=== PATIENT | female | born 1985 | race Caucasian/White ===

== ENCOUNTER 2017-09-09 02:12 | Inpatient (IN) | payer MEDICAID ==
[~2017-09-09] VITALS: Ht 157.5 cm; Wt 70.3 kg
[2017-09-09] MEDS ORDERED: QUEtiapine FUMARATE 100 MG TABLET PO PRN (04:30)
[2017-09-09] MEDS ORDERED: ZOLPIDEM TARTRATE 10 MG TABLET PO PRN (04:30)
[2017-09-09 06:18] VITALS: BP 120/76
[2017-09-09 08:47] VITALS: BP 122/83
[2017-09-09] MEDS: RisperiDONE 3 MG TABLET PO SCH (16:21)
[2017-09-09] MEDS: HYDROCORTISONE 1% 30 GM OINTMENT TP SCH (18:00)
[2017-09-10 03:06] VITALS: BP 121/63
[2017-09-10 08:50] VITALS: BP 120/70
[2017-09-10] MEDS ORDERED: HYDROCORTISONE 1% 30 GM OINTMENT TP SCH (09:00)
[2017-09-10] MEDS: RisperiDONE 3 MG TABLET PO SCH ×2 (09:43→17:09)
[2017-09-10] MEDS: HYDROCORTISONE 1% 30 GM OINTMENT TP SCH ×2 (09:47→17:09)
[2017-09-11] MEDS: RisperiDONE 3 MG TABLET PO SCH ×2 (08:49→16:26)
[2017-09-11] MEDS: HYDROCORTISONE 1% 30 GM OINTMENT TP SCH ×2 (08:54→16:26)
[2017-09-11] MEDS ORDERED: LORazepam 2 MG/ML VIAL ONE (13:24)
[2017-09-11] MEDS ORDERED: DiphenhydrAMINE HCL 50 MG/ML VIAL ONE (13:25)
[2017-09-11] MEDS ORDERED: HALOPERIDOL LACTATE 5 MG/ML VIAL ONE (13:25)
[2017-09-11] MEDS ORDERED: DiphenhydrAMINE HCL 50 MG/ML VIAL IM ONE (13:30)
[2017-09-11] MEDS ORDERED: LORazepam 2 MG/ML VIAL IM ONE (13:30)
[2017-09-11] MEDS ORDERED: HALOPERIDOL LACTATE 5 MG/ML VIAL IM ONE (13:30)
[2017-09-11] MEDS ORDERED: HALOPERIDOL 5 MG TABLET PO PRN (14:15)
[2017-09-11] MEDS: DIVALPROEX SODIUM 500 MG DR TABLET PO SCH (17:00)
[2017-09-12] MEDS: RisperiDONE 3 MG TABLET PO SCH ×2 (09:00→16:46)
[2017-09-12] MEDS: DIVALPROEX SODIUM 500 MG DR TABLET PO SCH ×2 (09:00→17:00)
[2017-09-12] MEDS: HYDROCORTISONE 1% 30 GM OINTMENT TP SCH ×2 (09:00→16:45)
[2017-09-13] MEDS: RisperiDONE 3 MG TABLET PO SCH ×2 (08:05→16:33)
[2017-09-13] MEDS: DIVALPROEX SODIUM 500 MG DR TABLET PO SCH ×3 (08:05→16:34)
[2017-09-13] MEDS: HYDROCORTISONE 1% 30 GM OINTMENT TP SCH ×2 (08:11→16:34)
[2017-09-13] MEDS: LORazepam 2 MG TABLET PO PRN (16:33)
[2017-09-13] MEDS: LITHIUM CARBONATE 300 MG CAPSULE PO SCH (17:00)
[2017-09-14] MEDS: LITHIUM CARBONATE 300 MG CAPSULE PO SCH ×3 (09:00→16:29)
[2017-09-14] MEDS: HYDROCORTISONE 1% 30 GM OINTMENT TP SCH ×2 (09:57→16:28)
[2017-09-14] MEDS: RisperiDONE 3 MG TABLET PO SCH ×2 (09:57→16:29)
[2017-09-15] MEDS: LORazepam 2 MG TABLET PO PRN (05:53)
[2017-09-15] MEDS: RisperiDONE 3 MG TABLET PO SCH ×2 (08:08→16:16)
[2017-09-15] MEDS: LITHIUM CARBONATE 300 MG CAPSULE PO SCH ×2 (08:17→17:00)
[2017-09-15] MEDS: HYDROCORTISONE 1% 30 GM OINTMENT TP SCH ×2 (08:18→16:19)
[2017-09-16] MEDS: LITHIUM CARBONATE 300 MG CAPSULE PO SCH ×2 (07:55→16:04)
[2017-09-16] MEDS: RisperiDONE 3 MG TABLET PO SCH ×2 (07:55→16:04)
[2017-09-16] MEDS: HYDROCORTISONE 1% 30 GM OINTMENT TP SCH ×2 (07:56→16:04)
[2017-09-16] MEDS: LORazepam 2 MG TABLET PO PRN (10:44)
[2017-09-17] MEDS: HYDROCORTISONE 1% 30 GM OINTMENT TP SCH ×2 (08:51→16:25)
[2017-09-17] MEDS: RisperiDONE 3 MG TABLET PO SCH ×2 (08:51→16:20)
[2017-09-17] MEDS: LITHIUM CARBONATE 300 MG CAPSULE PO SCH ×2 (08:52→16:24)
[2017-09-17] MEDS: LORazepam 2 MG TABLET PO PRN ×2 (08:56→16:20)
[2017-09-18] MEDS: LORazepam 2 MG TABLET PO PRN ×2 (08:29→12:29)
[2017-09-18] MEDS: HYDROCORTISONE 1% 30 GM OINTMENT TP SCH ×2 (08:29→17:20)
[2017-09-18] MEDS: RisperiDONE 3 MG TABLET PO SCH ×2 (08:29→17:20)
[2017-09-18] MEDS: LITHIUM CARBONATE 300 MG CAPSULE PO SCH ×2 (08:29→17:00)
[2017-09-19] MEDS: HYDROCORTISONE 1% 30 GM OINTMENT TP SCH ×2 (08:05→16:27)
[2017-09-19] MEDS: LORazepam 2 MG TABLET PO PRN ×2 (08:05→16:26)
[2017-09-19] MEDS: RisperiDONE 3 MG TABLET PO SCH ×2 (08:05→16:26)
[2017-09-19] MEDS: LITHIUM CARBONATE 300 MG CAPSULE PO SCH (08:06)
[2017-09-19] MEDS: DIVALPROEX SODIUM 500 MG DR TABLET PO SCH ×2 (09:30→16:27)
[2017-09-20] MEDS: DIVALPROEX SODIUM 500 MG DR TABLET PO SCH ×2 (08:39→16:08)
[2017-09-20] MEDS: RisperiDONE 3 MG TABLET PO SCH ×2 (08:39→16:02)
[2017-09-20] MEDS: HYDROCORTISONE 1% 30 GM OINTMENT TP SCH ×2 (09:52→16:03)
[2017-09-20] MEDS: LORazepam 2 MG TABLET PO PRN (16:02)
[2017-09-21] MEDS: RisperiDONE 3 MG TABLET PO SCH ×2 (08:09→16:07)
[2017-09-21] MEDS: HYDROCORTISONE 1% 30 GM OINTMENT TP SCH ×2 (08:09→16:07)
[2017-09-21] MEDS: DIVALPROEX SODIUM 500 MG DR TABLET PO SCH ×2 (08:10→16:08)
[2017-09-21] MEDS: LORazepam 2 MG TABLET PO PRN ×2 (08:10→16:07)
[2017-09-22] MEDS: HYDROCORTISONE 1% 30 GM OINTMENT TP SCH ×2 (08:35→16:03)
[2017-09-22] MEDS: LORazepam 2 MG TABLET PO PRN ×2 (08:35→16:02)
[2017-09-22] MEDS: RisperiDONE 3 MG TABLET PO SCH ×2 (08:35→16:02)
[2017-09-22] MEDS: DIVALPROEX SODIUM 500 MG DR TABLET PO SCH (08:35)
[2017-09-22] MEDS: LITHIUM CARBONATE 300 MG CAPSULE PO SCH (16:02)
[2017-09-23] MEDS: RisperiDONE 3 MG TABLET PO SCH ×2 (08:31→16:14)
[2017-09-23] MEDS: LITHIUM CARBONATE 300 MG CAPSULE PO SCH ×2 (08:31→16:14)
[2017-09-23] MEDS: LORazepam 2 MG TABLET PO PRN ×2 (08:31→16:14)
[2017-09-23] MEDS: HYDROCORTISONE 1% 30 GM OINTMENT TP SCH ×2 (08:41→17:12)
[2017-09-24] MEDS: LITHIUM CARBONATE 600 MG CAPSULE PO SCH ×2 (09:08→16:08)
[2017-09-24] MEDS: RisperiDONE 3 MG TABLET PO SCH ×2 (09:08→16:08)
[2017-09-24] MEDS: HYDROCORTISONE 1% 30 GM OINTMENT TP SCH ×2 (09:55→16:08)
[2017-09-25] MEDS: HYDROCORTISONE 1% 30 GM OINTMENT TP SCH ×2 (09:00→16:16)
[2017-09-25] MEDS: LITHIUM CARBONATE 600 MG CAPSULE PO SCH ×2 (09:22→16:15)
[2017-09-25] MEDS: RisperiDONE 3 MG TABLET PO SCH ×2 (09:22→16:15)
[2017-09-25] MEDS: LORazepam 2 MG TABLET PO PRN (10:09)
[2017-09-25] MEDS ORDERED: DiphenhydrAMINE HCL 50 MG/ML VIAL ONE (10:10)
[2017-09-25] MEDS ORDERED: LORazepam 2 MG/ML VIAL ONE (10:10)
[2017-09-25] MEDS ORDERED: HALOPERIDOL LACTATE 5 MG/ML VIAL ONE (10:10)
[2017-09-25] MEDS ORDERED: DiphenhydrAMINE HCL 50 MG/ML VIAL IM ONE (10:15)
[2017-09-25] MEDS ORDERED: HALOPERIDOL LACTATE 5 MG/ML VIAL IM ONE (10:15)
[2017-09-25] MEDS ORDERED: LORazepam 2 MG/ML VIAL IM ONE (10:15)
[2017-09-25] MEDS: CARBAMIDE PEROXIDE 6.5% 15 ML OTIC SOLUTION AD SCH ×2 (10:30→16:15)
[2017-09-26] MEDS: HYDROCORTISONE 1% 30 GM OINTMENT TP SCH ×2 (08:35→17:06)
[2017-09-26] MEDS: CARBAMIDE PEROXIDE 6.5% 15 ML OTIC SOLUTION AD SCH ×2 (08:35→17:06)
[2017-09-26] MEDS: RisperiDONE 3 MG TABLET PO SCH ×2 (08:35→17:06)
[2017-09-26] MEDS: LITHIUM CARBONATE 600 MG CAPSULE PO SCH (08:35)
[2017-09-26] MEDS: LORazepam 2 MG TABLET PO PRN ×2 (09:47→17:06)
[2017-09-26] MEDS ORDERED: LITHIUM CARBONATE 300 MG TABLET PO SCH (17:00)
[2017-09-27] MEDS: HYDROCORTISONE 1% 30 GM OINTMENT TP SCH ×2 (09:01→17:11)
[2017-09-27] MEDS: LITHIUM CARBONATE 450 MG ER TABLET PO SCH ×3 (09:01→17:11)
[2017-09-27] MEDS: RisperiDONE 3 MG TABLET PO SCH ×2 (09:01→17:12)
[2017-09-27] MEDS: LORazepam 2 MG TABLET PO PRN ×3 (09:02→17:12)
[2017-09-27] MEDS: CARBAMIDE PEROXIDE 6.5% 15 ML OTIC SOLUTION AD SCH ×2 (09:03→17:12)
[2017-09-28] MEDS: RisperiDONE 3 MG TABLET PO SCH ×2 (08:36→16:03)
[2017-09-28] MEDS: HYDROCORTISONE 1% 30 GM OINTMENT TP SCH ×2 (08:36→16:03)
[2017-09-28] MEDS: LITHIUM CARBONATE 450 MG ER TABLET PO SCH ×3 (08:36→16:04)
[2017-09-28] MEDS: CARBAMIDE PEROXIDE 6.5% 15 ML OTIC SOLUTION AD SCH ×2 (08:36→16:03)
[2017-09-28] MEDS: LORazepam 2 MG TABLET PO PRN ×2 (11:08→16:03)
[2017-09-29] MEDS: CARBAMIDE PEROXIDE 6.5% 15 ML OTIC SOLUTION AD SCH ×2 (08:20→16:07)
[2017-09-29] MEDS: HYDROCORTISONE 1% 30 GM OINTMENT TP SCH ×2 (08:20→16:07)
[2017-09-29] MEDS: RisperiDONE 3 MG TABLET PO SCH ×2 (08:20→16:07)
[2017-09-29] MEDS: LITHIUM CARBONATE 450 MG ER TABLET PO SCH ×3 (08:20→16:06)
[2017-09-30] MEDS: HYDROCORTISONE 1% 30 GM OINTMENT TP SCH ×2 (08:45→16:02)
[2017-09-30] MEDS: LITHIUM CARBONATE 450 MG ER TABLET PO SCH ×2 (08:45→16:01)
[2017-09-30] MEDS: RisperiDONE 3 MG TABLET PO SCH ×2 (08:45→16:02)
[2017-09-30] MEDS: CARBAMIDE PEROXIDE 6.5% 15 ML OTIC SOLUTION AD SCH ×2 (08:45→16:02)
[2017-10-01] MEDS: LITHIUM CARBONATE 450 MG ER TABLET PO SCH ×3 (08:27→16:50)
[2017-10-01] MEDS: CARBAMIDE PEROXIDE 6.5% 15 ML OTIC SOLUTION AD SCH ×2 (08:27→16:50)
[2017-10-01] MEDS: HYDROCORTISONE 1% 30 GM OINTMENT TP SCH ×2 (08:28→16:49)
[2017-10-01] MEDS: RisperiDONE 3 MG TABLET PO SCH ×2 (08:28→16:50)
[2017-10-02 08:26] VITALS: BP 103/69
[2017-10-02] MEDS: RisperiDONE 3 MG TABLET PO SCH ×2 (08:44→16:07)
[2017-10-02] MEDS: LITHIUM CARBONATE 450 MG ER TABLET PO SCH ×3 (08:44→16:07)
[2017-10-02] MEDS: CARBAMIDE PEROXIDE 6.5% 15 ML OTIC SOLUTION AD SCH ×2 (08:44→16:07)
[2017-10-02] MEDS: HYDROCORTISONE 1% 30 GM OINTMENT TP SCH ×2 (08:44→16:07)
[2017-10-03] MEDS: CARBAMIDE PEROXIDE 6.5% 15 ML OTIC SOLUTION AD SCH ×2 (08:15→16:37)
[2017-10-03] MEDS: LITHIUM CARBONATE 450 MG ER TABLET PO SCH ×3 (08:15→16:37)
[2017-10-03] MEDS: HYDROCORTISONE 1% 30 GM OINTMENT TP SCH ×2 (08:16→16:36)
[2017-10-03] MEDS: RisperiDONE 3 MG TABLET PO SCH ×2 (08:16→16:36)
[2017-10-04] MEDS: RisperiDONE 3 MG TABLET PO SCH ×2 (08:56→16:54)
[2017-10-04] MEDS: CARBAMIDE PEROXIDE 6.5% 15 ML OTIC SOLUTION AD SCH ×2 (08:56→16:53)
[2017-10-04] MEDS: HYDROCORTISONE 1% 30 GM OINTMENT TP SCH ×2 (08:56→16:53)
[2017-10-04] MEDS: LITHIUM CARBONATE 450 MG ER TABLET PO SCH ×3 (08:56→16:53)
[2017-10-05] MEDS: RisperiDONE 3 MG TABLET PO SCH ×2 (09:15→17:28)
[2017-10-05] MEDS: CARBAMIDE PEROXIDE 6.5% 15 ML OTIC SOLUTION AD SCH ×2 (09:15→17:30)
[2017-10-05] MEDS: LITHIUM CARBONATE 450 MG ER TABLET PO SCH ×3 (09:15→17:29)
[2017-10-05] MEDS: HYDROCORTISONE 1% 30 GM OINTMENT TP SCH ×2 (09:15→17:31)
[2017-10-06] MEDS: LITHIUM CARBONATE 450 MG ER TABLET PO SCH ×2 (08:57→12:32)
[2017-10-06] MEDS: RisperiDONE 3 MG TABLET PO SCH (08:57)
[2017-10-06] MEDS: HYDROCORTISONE 1% 30 GM OINTMENT TP SCH ×2 (08:58→16:14)
[2017-10-06] MEDS: CARBAMIDE PEROXIDE 6.5% 15 ML OTIC SOLUTION AD SCH ×2 (08:58→16:14)
[2017-10-06] MEDS: PALIPERIDONE 3 MG ER TABLET PO SCH (16:14)
[2017-10-07] MEDS: PALIPERIDONE 3 MG ER TABLET PO SCH ×2 (09:00→13:10)
[2017-10-07] MEDS: CARBAMIDE PEROXIDE 6.5% 15 ML OTIC SOLUTION AD SCH ×2 (09:00→17:21)
[2017-10-07] MEDS: HYDROCORTISONE 1% 30 GM OINTMENT TP SCH ×2 (09:00→17:21)
[2017-10-07] MEDS: PALIPERIDONE 6 MG ER TABLET PO SCH (17:21)
[2017-10-08] MEDS: CARBAMIDE PEROXIDE 6.5% 15 ML OTIC SOLUTION AD SCH ×2 (08:12→16:29)
[2017-10-08] MEDS: PALIPERIDONE 6 MG ER TABLET PO SCH ×2 (08:12→16:29)
[2017-10-08] MEDS: HYDROCORTISONE 1% 30 GM OINTMENT TP SCH ×2 (08:13→16:29)
[2017-10-09] MEDS: CARBAMIDE PEROXIDE 6.5% 15 ML OTIC SOLUTION AD SCH ×2 (08:21→17:12)
[2017-10-09] MEDS: HYDROCORTISONE 1% 30 GM OINTMENT TP SCH ×2 (08:21→17:13)
[2017-10-09] MEDS: PALIPERIDONE 6 MG ER TABLET PO SCH ×2 (08:21→17:11)
[2017-10-10] MEDS: HYDROCORTISONE 1% 30 GM OINTMENT TP SCH ×2 (09:22→17:04)
[2017-10-10] MEDS: PALIPERIDONE 6 MG ER TABLET PO SCH ×2 (09:22→17:04)
[2017-10-10] MEDS: CARBAMIDE PEROXIDE 6.5% 15 ML OTIC SOLUTION AD SCH ×2 (09:22→17:03)
[2017-10-10] MEDS: RisperiDONE 1 MG TABLET PO SCH (17:04)
[2017-10-11] MEDS: PALIPERIDONE 6 MG ER TABLET PO SCH ×2 (09:02→17:17)
[2017-10-11] MEDS: CARBAMIDE PEROXIDE 6.5% 15 ML OTIC SOLUTION AD SCH ×2 (09:02→17:22)
[2017-10-11] MEDS: HYDROCORTISONE 1% 30 GM OINTMENT TP SCH ×2 (09:02→17:19)
[2017-10-11] MEDS: RisperiDONE 1 MG TABLET PO SCH ×2 (09:02→17:18)
[2017-10-12] MEDS: RisperiDONE 1 MG TABLET PO SCH (08:21)
[2017-10-12] MEDS: PALIPERIDONE 6 MG ER TABLET PO SCH ×2 (08:21→16:45)
[2017-10-12] MEDS: CARBAMIDE PEROXIDE 6.5% 15 ML OTIC SOLUTION AD SCH ×2 (08:22→16:46)
[2017-10-12] MEDS: HYDROCORTISONE 1% 30 GM OINTMENT TP SCH ×2 (08:22→16:47)
[2017-10-12] MEDS: RisperiDONE 3 MG TABLET PO SCH (16:45)
[2017-10-13] MEDS: CARBAMIDE PEROXIDE 6.5% 15 ML OTIC SOLUTION AD SCH ×2 (09:25→16:16)
[2017-10-13] MEDS: RisperiDONE 3 MG TABLET PO SCH ×2 (09:27→16:15)
[2017-10-13] MEDS: HYDROCORTISONE 1% 30 GM OINTMENT TP SCH ×2 (09:28→16:16)
[2017-10-13] MEDS: PALIPERIDONE 6 MG ER TABLET PO SCH ×2 (10:20→16:15)
[2017-10-14] MEDS: RisperiDONE 3 MG TABLET PO SCH ×2 (08:12→16:11)
[2017-10-14] MEDS: CARBAMIDE PEROXIDE 6.5% 15 ML OTIC SOLUTION AD SCH ×2 (08:12→16:13)
[2017-10-14] MEDS: PALIPERIDONE 6 MG ER TABLET PO SCH ×2 (08:12→16:11)
[2017-10-14] MEDS: HYDROCORTISONE 1% 30 GM OINTMENT TP SCH ×2 (08:13→16:12)
[2017-10-15] MEDS: HYDROCORTISONE 1% 30 GM OINTMENT TP SCH ×2 (08:06→16:01)
[2017-10-15] MEDS: RisperiDONE 3 MG TABLET PO SCH ×2 (08:08→16:00)
[2017-10-15] MEDS: PALIPERIDONE 6 MG ER TABLET PO SCH ×2 (08:08→16:00)
[2017-10-15] MEDS: CARBAMIDE PEROXIDE 6.5% 15 ML OTIC SOLUTION AD SCH ×2 (08:08→16:01)
[2017-10-16] MEDS: RisperiDONE 3 MG TABLET PO SCH ×2 (08:20→16:08)
[2017-10-16] MEDS: HYDROCORTISONE 1% 30 GM OINTMENT TP SCH ×2 (08:20→16:09)
[2017-10-16] MEDS: CARBAMIDE PEROXIDE 6.5% 15 ML OTIC SOLUTION AD SCH ×2 (08:20→16:09)
[2017-10-16] MEDS: PALIPERIDONE 6 MG ER TABLET PO SCH ×2 (08:21→16:08)
[2017-10-16] MEDS ORDERED: PALI6 PO (12:39)
[2017-10-16] MEDS ORDERED: RISP3 PO (12:40)
[2017-10-17] MEDS: CARBAMIDE PEROXIDE 6.5% 15 ML OTIC SOLUTION AD SCH ×2 (09:00→16:03)
[2017-10-17] MEDS: HYDROCORTISONE 1% 30 GM OINTMENT TP SCH ×2 (09:00→16:02)
[2017-10-17] MEDS: RisperiDONE 3 MG TABLET PO SCH ×2 (09:00→16:03)
[2017-10-17] MEDS: PALIPERIDONE 6 MG ER TABLET PO SCH ×2 (09:00→16:03)
[2017-10-18] MEDS: RisperiDONE 3 MG TABLET PO SCH ×2 (08:51→16:16)
[2017-10-18] MEDS: PALIPERIDONE 6 MG ER TABLET PO SCH ×2 (08:51→16:16)
[2017-10-18] MEDS: HYDROCORTISONE 1% 30 GM OINTMENT TP SCH ×2 (08:59→16:16)
[2017-10-18] MEDS: CARBAMIDE PEROXIDE 6.5% 15 ML OTIC SOLUTION AD SCH ×2 (08:59→16:16)
[2017-10-19] MEDS: PALIPERIDONE 6 MG ER TABLET PO SCH ×2 (08:14→16:50)
[2017-10-19] MEDS: HYDROCORTISONE 1% 30 GM OINTMENT TP SCH ×2 (08:14→16:53)
[2017-10-19] MEDS: RisperiDONE 3 MG TABLET PO SCH ×2 (08:14→16:50)
[2017-10-19] MEDS: CARBAMIDE PEROXIDE 6.5% 15 ML OTIC SOLUTION AD SCH ×2 (08:14→16:52)
[2017-10-20] MEDS: CARBAMIDE PEROXIDE 6.5% 15 ML OTIC SOLUTION AD SCH ×2 (07:52→16:10)
[2017-10-20] MEDS: RisperiDONE 3 MG TABLET PO SCH ×2 (07:52→16:10)
[2017-10-20] MEDS: HYDROCORTISONE 1% 30 GM OINTMENT TP SCH ×2 (07:52→16:10)
[2017-10-20] MEDS: PALIPERIDONE 6 MG ER TABLET PO SCH ×2 (07:52→16:10)
[2017-10-20] MEDS ORDERED: PALIPERIDONE PALMITATE 234 MG/1.5 ML SYRINGE IM SCH (09:00)
[2017-10-21] MEDS: RisperiDONE 3 MG TABLET PO SCH ×2 (08:47→16:50)
[2017-10-21] MEDS: PALIPERIDONE 6 MG ER TABLET PO SCH ×2 (08:47→16:50)
[2017-10-21] MEDS: HYDROCORTISONE 1% 30 GM OINTMENT TP SCH ×2 (08:48→16:50)
[2017-10-21] MEDS: CARBAMIDE PEROXIDE 6.5% 15 ML OTIC SOLUTION AD SCH ×2 (08:48→16:50)
[2017-10-22] MEDS: CARBAMIDE PEROXIDE 6.5% 15 ML OTIC SOLUTION AD SCH ×2 (08:36→16:27)
[2017-10-22] MEDS: RisperiDONE 3 MG TABLET PO SCH ×2 (08:36→16:27)
[2017-10-22] MEDS: HYDROCORTISONE 1% 30 GM OINTMENT TP SCH ×2 (08:36→16:27)
[2017-10-22] MEDS: PALIPERIDONE 6 MG ER TABLET PO SCH ×2 (08:37→16:26)
[2017-10-23] MEDS: PALIPERIDONE 6 MG ER TABLET PO SCH ×2 (07:59→16:23)
[2017-10-23] MEDS: CARBAMIDE PEROXIDE 6.5% 15 ML OTIC SOLUTION AD SCH ×2 (07:59→16:24)
[2017-10-23] MEDS: HYDROCORTISONE 1% 30 GM OINTMENT TP SCH ×2 (07:59→16:24)
[2017-10-23] MEDS: RisperiDONE 3 MG TABLET PO SCH ×2 (07:59→16:24)
[2017-10-23] MEDS ORDERED: DiphenhydrAMINE HCL 50 MG/ML VIAL ONE (18:20)
[2017-10-23] MEDS ORDERED: HALOPERIDOL LACTATE 5 MG/ML VIAL ONE (18:20)
[2017-10-23] MEDS ORDERED: LORazepam 2 MG/ML VIAL ONE (18:20)
[2017-10-23] MEDS ORDERED: HALOPERIDOL LACTATE 5 MG/ML VIAL IM ONE (18:30)
[2017-10-23] MEDS ORDERED: DiphenhydrAMINE HCL 50 MG/ML VIAL IM ONE (18:30)
[2017-10-23] MEDS ORDERED: LORazepam 2 MG/ML VIAL IM ONE (18:30)
[2017-10-24] MEDS: RisperiDONE 3 MG TABLET PO SCH ×2 (08:01→16:39)
[2017-10-24] MEDS: PALIPERIDONE 6 MG ER TABLET PO SCH ×2 (08:01→16:40)
[2017-10-24] MEDS: HYDROCORTISONE 1% 30 GM OINTMENT TP SCH ×2 (09:25→16:40)
[2017-10-24] MEDS: CARBAMIDE PEROXIDE 6.5% 15 ML OTIC SOLUTION AD SCH ×2 (09:26→16:39)
[2017-10-25] MEDS: PALIPERIDONE 6 MG ER TABLET PO SCH ×2 (09:05→17:13)
[2017-10-25] MEDS: RisperiDONE 3 MG TABLET PO SCH ×2 (09:05→17:13)
[2017-10-25] MEDS: CARBAMIDE PEROXIDE 6.5% 15 ML OTIC SOLUTION AD SCH ×2 (09:06→17:14)
[2017-10-25] MEDS: HYDROCORTISONE 1% 30 GM OINTMENT TP SCH ×2 (09:06→17:14)
[2017-10-26] MEDS: PALIPERIDONE 6 MG ER TABLET PO SCH ×2 (07:51→17:09)
[2017-10-26] MEDS: RisperiDONE 3 MG TABLET PO SCH ×2 (07:51→17:09)
[2017-10-26] MEDS: PALIPERIDONE PALMITATE 234 MG/1.5 ML SYRINGE IM SCH ×2 (07:51→09:00)
[2017-10-26] MEDS: CARBAMIDE PEROXIDE 6.5% 15 ML OTIC SOLUTION AD SCH ×2 (08:21→17:08)
[2017-10-26] MEDS: HYDROCORTISONE 1% 30 GM OINTMENT TP SCH ×2 (08:22→17:09)
[2017-10-27] MEDS: HYDROCORTISONE 1% 30 GM OINTMENT TP SCH ×2 (08:11→16:10)
[2017-10-27] MEDS: CARBAMIDE PEROXIDE 6.5% 15 ML OTIC SOLUTION AD SCH ×2 (08:11→16:12)
[2017-10-27] MEDS: PALIPERIDONE 6 MG ER TABLET PO SCH ×2 (08:12→16:12)
[2017-10-27] MEDS: RisperiDONE 3 MG TABLET PO SCH ×2 (08:12→16:12)
[2017-10-28] MEDS: RisperiDONE 3 MG TABLET PO SCH ×2 (08:52→16:03)
[2017-10-28] MEDS: HYDROCORTISONE 1% 30 GM OINTMENT TP SCH ×2 (08:52→16:05)
[2017-10-28] MEDS: PALIPERIDONE 6 MG ER TABLET PO SCH ×2 (08:52→16:03)
[2017-10-28] MEDS: CARBAMIDE PEROXIDE 6.5% 15 ML OTIC SOLUTION AD SCH (08:52)
[2017-10-29] MEDS: PALIPERIDONE 6 MG ER TABLET PO SCH (08:12)
[2017-10-29] MEDS: HYDROCORTISONE 1% 30 GM OINTMENT TP SCH (08:12)
[2017-10-29] MEDS: RisperiDONE 3 MG TABLET PO SCH (08:13)
== END 2017-10-29 13:50 | disposition home or self-care (01) | DRG 750 ==
LOC: EDSTATUS 02:15 → B3A 04:57
PROVIDERS: ADMIT Psychiatry & Neurology Psychiatry; ATTEND Psychiatry & Neurology Psychiatry
DX: F25.0 Schizoaffective disorder, bipolar type (principal); Z91.14 Patient's other noncompliance with medication regimen; F41.9 Anxiety disorder, unspecified; L30.9 Dermatitis, unspecified; Z91.19 Patient's noncompliance with other medical treatment and regimen; Z79.899 Other long term (current) drug therapy; Z59.0 Homelessness; R45.4 Irritability and anger; Z88.8 Allergy status to other drugs, medicaments and biological substances; Z81.8 Family history of other mental and behavioral disorders
CPT/HCPCS: 99285; J1200; J1630; J2060